=== PATIENT | male | born 1970 | race Two or more races ===

== ENCOUNTER 2018-09-07 07:40 | Emergency (ER) | END 2018-09-07 10:30 | disposition home or self-care (01) ==

== ENCOUNTER 2019-09-09 12:47 | Emergency (ER) | payer BC ==
[~2019-09-09] VITALS: Ht 177.8 cm; Wt 95.5 kg
[~2019-09-09 12:47] MED LIST: FAMO-96 PO; HYDR-3980 PO; NAPR-985 PO; TAMS-14 PO
[2019-09-09 12:58] VITALS: Ht 177.8 cm; Wt 95.5 kg
[2019-09-09] MEDS ORDERED: LORAZEPAM 1 MG TAB PO ONE (13:30)
[2019-09-09 13:36] VITALS: BP 142/94; PULSE 108; RESP 16
== END 2019-09-09 13:36 | disposition home or self-care (01) ==
LOC: E/R 12:47
DX: F41.9 Anxiety disorder, unspecified (principal)
CPT/HCPCS: 99283